=== PATIENT | female | born 1960 | race Caucasian/White ===

== ENCOUNTER 2019-04-01 14:39 | Emergency (ER) | payer OTHER ==
[~2019-04-01] VITALS: Ht 165.1 cm; Wt 72.6 kg
[~2019-04-01 14:39] MED LIST: BACTRIM DS TAB1 EAC1 PO; BENADRYL25 MG PO; ELIMITE60 GM TP; NORCO 5-325 TA1 EACH PO
[2019-04-01] MEDS ORDERED: NALTREXONE HCL50 MG PO (15:01)
[2019-04-01] MEDS ORDERED: TOPAMAX100 MG PO (15:01)
[2019-04-01] MEDS ORDERED: HYDROCHLOROTHIA25 M2 PO (15:01)
[2019-04-01 15:31] LABS: INFLUENZA A ANTIGEN Negative (Negative)
[2019-04-01] MEDS ORDERED: ONDANSETRON HCL4 M2 PO (15:58)
[2019-04-01] MEDS ORDERED: PREDNISONE 20 M20 MG PO (15:58)
[2019-04-01] MEDS ORDERED: TAMIFLU75 MG PO (15:58)
[2019-04-01] MEDS ORDERED: PREDNISONE 10 M10 MG PO (16:04)
[2019-04-01 16:11] VITALS: BP 130/91
== END 2019-04-01 16:12 | disposition home or self-care (01) ==
LOC: M.ERS 14:39
PROVIDERS: Nurse Practitioner Family
DX: J10.1 Influenza due to other identified influenza virus with other respiratory manifestations (principal); F17.200 Nicotine dependence, unspecified, uncomplicated; Z90.81 Acquired absence of spleen; Z85.41 Personal history of malignant neoplasm of cervix uteri; Z88.5 Allergy status to narcotic agent; Z88.2 Allergy status to sulfonamides; Z88.6 Allergy status to analgesic agent; Z88.8 Allergy status to other drugs, medicaments and biological substances

== ENCOUNTER 2019-05-03 16:45 | Inpatient (IN) | payer OTHER ==
[~2019-05-03] VITALS: Ht 165.1 cm; Wt 75.3 kg
--- NOTE | ~2019-05-03 | CON ---
[address] [address] CONSULTATION Name: CIRO BARRIGA Room: [address] IN .R.#: [id number] Admission: 05/03/19 Attend Phys: Zaida Pretty MD Discharge: Date of : 60 Report #: [id number] THIS REPORT FOR: //name// cc: TONY Soto family physician/PCP TONY Soto family physician/PCP ~ THIS REPORT FOR: //name// CC: Dr. Lawson [facility] physician/PCP Zaida Pretty DICTATED BY: Gaviota Martínez [facility] DATE OF SERVICE: 05/07/2019 Please note at the time of this dictation, the patient was seen and physically examined by myself. REASON FOR CONSULTATION: Ongoing lower abdominal pain. HISTORY OF PRESENT ILLNESS: This is a 59-year-old female who presented to the Emergency Room with ongoing abdominal pain for the past week. She states that had acute worsening over the last 2 days. She describes her pain as being over her suprapubic area and kind of radiating to the right lower quadrant. She states it is dull and intermittent. She has had a decreased appetite with a little bit of nausea, but no vomiting at this time. The patient states she does take some NSAIDs on a regular basis, naproxen for her general body aches and pains. She has never had an upper scope. She states she has had a colonoscopy done at [place] a couple of years ago and was told that she had colon polyps. She denies any issues with acid reflux or any difficulty swallowing or any upper abdominal pain. She does state her bowels are somewhat do not move on a regular basis and has some issues with some constipation. She had a very small bowel movement and that has been it since she has been here and likely she may have some constipation contributing to her lower abdominal discomfort. ALLERGIES: BACTRIM, TETRACYCLINE, CEPHALEXIN AND CODEINE. MEDICATIONS FROM HOME: Topamax, hydrochlorothiazide, Flexeril and naltrexone. PAST MEDICAL HISTORY: She has some essential tremors, history of cervical cancer, hypertension, fibromyalgia. PAST SURGICAL HISTORY: She has had a splenectomy and D and C. FAMILY HISTORY: Negative for any GI or female cancers. SOCIAL HISTORY: She continues to smoke. Denies any alcohol or illegal drug use at this time. REVIEW OF SYSTEMS: Twelve-point review of systems is essentially negative except what is mentioned in the HPI. PHYSICAL EXAMINATION: VITAL SIGNS: Temperature 36.6, pulse 90, respirations 16, blood pressure 125/71. HEART: Regular rate and rhythm. LUNGS: Clear. ABDOMEN: Soft, positive bowel sounds in all 4 quadrants with tenderness noted in the lower abdominal region. LABORATORY DATA: Hemoglobin of 13.3, white count 11.2, platelets 488. GFR 64. LFTs are normal. Did note that she had E. coli in her urine. CT was negative for any acute GI issues on admission. IMPRESSION: 1. Abdominal pain, lower, suprapubic. 2. Nausea, intermittent. 3. Constipation. 4. Nonsteroidal anti-inflammatory drug use. 5. Urinary tract infection. 6. History of colon polyps, colonoscopy done at [place]. 7. Personal history of cervical cancer. PLAN: 1. Dulcolax tablets 20 mg now to see if this will help alleviate some of her lower abdominal discomfort. 2. Medical records from [place] regarding her last colonoscopy. 3. Further recommendations to be made once the above have been reviewed and Dr. Vasquez sees the patient later today. Thank you for allowing us to participate in this patient's care. Please do not hesitate to call with any questions in regard to this consult. By: [id number] Amador Vasquez MD /nt
--- NOTE | ~2019-05-03 | EKG ---
[place] [address] ELECTROCARDIOGRAM REPORT Name: CIRO BARRIGA Room: [facility]#: [id number] Admission: 05/03/19 Attend Phys: Discharge: Date of : 60 Date of Service: 05/03/19 1840 Report #: [id number] THIS REPORT FOR: cc: FAM - No family physician/PCP FAM - No family physician/PCP Jared Coleman MD ~ THIS REPORT FOR: //name// [facility] ED Test Date: 2019-05-03 Test Time: 18:40:21 Pat Name: CIRO BARRIGA Department: Room: Gender: F Physics Department Chair: : 1960 Requested By: Francine Grant Order Number: [id number] MD: Measurements Intervals [place] Rate: 87 P: 48 MI: 164 QRS: 23 QRSD: 88 T: 52 QT: 383 QTc: 461 Interpretive Statements Sinus rhythm Low voltage, extremity leads Minimal ST depression, anterolateral leads Baseline wander in lead(s) II,III,aVF,V4 No previous ECG available for comparison [email or web address] By: 1840 1840 Epiphany Epiphany, /ELISA
[~2019-05-03 16:45] MED LIST changes: +HYDROCHLOROTHIA25 M2 PO; +NALTREXONE HCL50 MG PO; +ONDANSETRON HCL4 M2 PO; +PREDNISONE 10 M10 MG PO; +PREDNISONE 20 M20 MG PO; +TAMIFLU75 MG PO; +TOPAMAX100 MG PO
[2019-05-03 17:01] VITALS: BP 141/91
[2019-05-03] MEDS ORDERED: FLEXERIL PO (17:06)
[2019-05-03 18:32] LABS: URINE BILIRUBIN NEGATIVE (Negative); URINE BLOOD NEGATIVE (Negative); URINE CLARITY CLEAR; URINE COLOR YELLOW; URINE GLUCOSE-RANDOM NEGATIVE (Negative); URINE KETONES NEGATIVE (Negative); URINE LEUKOCYTES-REFLEX NEGATIVE (Negative); URINE PROTEIN NEGATIVE (Negative)
[2019-05-03 18:33] LABS: URINE NITRITE-REFLEX POSITIVE (Negative)
[2019-05-03 18:39] LABS: BACTERIA-REFLEX >30 Many /HPF (None Seen); SQUAMOUS >10 Many /LPF (0-3); URINE RBC None Seen /HPF (0-2); URINE WBC-REFLEX 0-5 Rare /HPF (0-5)
[2019-05-03 18:40] LABS: CASTS None Seen /LPF (None Seen); CRYSTALS None Seen /LPF (None Seen); MUCUS None Seen strn/LPF (None Seen)
[2019-05-03 18:42] LABS: ABSOLUTE EOSINOPHILS 0.3 thou/uL (0.0-0.7); ABSOLUTE LYMPHOCYTES 4.2 thou/uL (0.8-5.3); ABSOLUTE NEUTROPHILS 8.3 thou/uL (1.6-8.1); BASOPHILS 0.2 %; EOSINOPHILS 2.2 %; HEMATOCRIT 42.6 % (37.0-47.0); HEMOGLOBIN 14.4 gm/dL (12.0-15.0); LYMPHOCYTES 30.2 %; MCH 30.2 pg (26.0-34.0); MCHC 33.7 g/dL (28.0-37.0); MCV 89.6 fL (80.0-100.0); MONOCYTES 7.2 %; MPV 7.6 fl. (7.2-11.1); NUCLEATED RBCS 0 /100WBC; PLATELET COUNT* 453 thou/uL (150-400); POLYS 60.2 %; RBC 4.75 mil/uL (4.20-5.00); RDW-CV 14.3 % (10.5-14.5); WBC 13.9 thou/uL (4.0-11.0)
[2019-05-03 18:54] LABS: CALCIUM 8.7 mg/dL (8.5-10.1); CREATININE 0.8 mg/dL (0.6-1.3)
[2019-05-03 18:56] LABS: POTASSIUM 2.7 mmol/L (3.5-5.1)
[2019-05-03 18:58] LABS: ALBUMIN 3.5 g/dL (3.4-5.0); TOTAL BILIRUBIN 0.3 mg/dL (<0.1-1.0); TOTAL PROTEIN 7.3 g/dL (6.4-8.2)
[2019-05-03 22:50] VITALS: BP 135/85
[2019-05-03 23:00] VITALS: BP 126/82
[2019-05-04 01:54] LABS: HEMATOCRIT 37.5 % (37.0-47.0); HEMOGLOBIN 12.6 gm/dL (12.0-15.0); MCH 30.4 pg (26.0-34.0); MCHC 33.7 g/dL (28.0-37.0); MCV 90.3 fL (80.0-100.0); MPV 7.4 fl. (7.2-11.1); RBC 4.15 mil/uL (4.20-5.00); RDW-CV 14.9 % (10.5-14.5); WBC 11.6 thou/uL (4.0-11.0)
[2019-05-04 02:20] LABS: ALBUMIN 2.9 g/dL (3.4-5.0); CALCIUM 7.6 mg/dL (8.5-10.1); CREATININE 0.8 mg/dL (0.6-1.3); TOTAL BILIRUBIN 0.2 mg/dL (<0.1-1.0); TOTAL PROTEIN 5.9 g/dL (6.4-8.2)
[2019-05-04 02:21] LABS: POTASSIUM 3.9 mmol/L (3.5-5.1)
[2019-05-04 04:00] VITALS: BP 96/52
[2019-05-04 08:00] VITALS: BP 102/60
[2019-05-04 12:00] VITALS: BP 117/50
[2019-05-04 16:00] VITALS: BP 119/71
[2019-05-04 20:00] VITALS: BP 120/68
[2019-05-05 01:21] VITALS: BP 118/68
[2019-05-05 05:36] LABS: HEMATOCRIT 35.5 % (37.0-47.0); HEMOGLOBIN 12.3 gm/dL (12.0-15.0); MCH 31.4 pg (26.0-34.0); MCHC 34.7 g/dL (28.0-37.0); MCV 90.7 fL (80.0-100.0); MPV 7.2 fl. (7.2-11.1); RBC 3.92 mil/uL (4.20-5.00); RDW-CV 15.2 % (10.5-14.5); WBC 9.8 thou/uL (4.0-11.0)
[2019-05-05 05:37] LABS: CALCIUM 7.8 mg/dL (8.5-10.1); CREATININE 0.7 mg/dL (0.6-1.3); MAGNESIUM 1.8 mg/dL (1.8-2.4); POTASSIUM 3.9 mmol/L (3.5-5.1)
[2019-05-05 08:00] VITALS: BP 120/46
[2019-05-05 12:30] VITALS: BP 135/77
[2019-05-05 16:00] VITALS: BP 106/67
[2019-05-05 20:30] VITALS: BP 109/62
[2019-05-06 08:15] VITALS: BP 127/73
[2019-05-06 13:23] LABS: CALCIUM 8.3 mg/dL (8.5-10.1); CREATININE 0.9 mg/dL (0.6-1.3)
[2019-05-06 13:35] LABS: POTASSIUM 3.2 mmol/L (3.5-5.1)
[2019-05-06 15:53] VITALS: BP 111/67
[2019-05-06 20:17] VITALS: BP 156/86
[2019-05-07 08:05] VITALS: BP 112/71
[2019-05-07 15:04] LABS: HEMOGLOBIN 13.3 gm/dL (12.0-15.0); MCHC 34.2 g/dL (28.0-37.0); MCV 90.7 fL (80.0-100.0); MPV 7.9 fl. (7.2-11.1); RBC 4.3 mil/uL (4.20-5.00); RDW-CV 15.4 % (10.5-14.5); WBC 11.2 thou/uL (4.0-11.0)
[2019-05-07 15:12] LABS: CALCIUM 8.3 mg/dL (8.5-10.1); CREATININE 0.9 mg/dL (0.6-1.3); POTASSIUM 3.7 mmol/L (3.5-5.1)
[2019-05-07 16:00] VITALS: BP 117/69
[2019-05-07 19:41] VITALS: BP 128/82
[2019-05-08 07:55] VITALS: BP 125/71
[2019-05-08 14:09] VITALS: BP 125/71
[2019-05-08] MEDS ORDERED: NAPROXEN SODIU220 M2 PO (14:20)
[2019-05-08] MEDS ORDERED: NICOTINE TRANSD21 M1 TRANSDERM (14:20)
[2019-05-08] MEDS ORDERED: SENOKOT-S1 TA2 PO (14:21)
[2019-05-08] MEDS ORDERED: LEVAQUIN 500 M500 M3 PO (14:27)
[2019-05-08 16:00] VITALS: BP 111/58
== END 2019-05-08 18:17 | disposition home or self-care (01) | DRG 871 ==
LOC: M.ERS 16:45 → M.TBA-ER 20:44 → M.2W 20:44 → M.ORTHSURG 05-05 16:17
PROVIDERS: Family Medicine; Nurse Practitioner Family; ADMIT Internal Medicine
DX: A41.9 Sepsis, unspecified organism (principal); E43 Unspecified severe protein-calorie malnutrition; N30.00 Acute cystitis without hematuria; E87.0 Hyperosmolality and hypernatremia; I10 Essential (primary) hypertension; E87.6 Hypokalemia; K59.00 Constipation, unspecified; F17.210 Nicotine dependence, cigarettes, uncomplicated; M79.7 Fibromyalgia; B96.89 Other specified bacterial agents as the cause of diseases classified elsewhere; E87.8 Other disorders of electrolyte and fluid balance, not elsewhere classified; Z23 Encounter for immunization; Z85.41 Personal history of malignant neoplasm of cervix uteri; Z90.81 Acquired absence of spleen; Z88.6 Allergy status to analgesic agent; Z88.1 Allergy status to other antibiotic agents; Z88.2 Allergy status to sulfonamides; Z88.8 Allergy status to other drugs, medicaments and biological substances; Z79.1 Long term (current) use of non-steroidal anti-inflammatories (NSAID); Z86.010 Personal history of colon polyps

== ENCOUNTER 2020-11-13 15:19 | Inpatient (IN) | payer OTHER, MEDICAID ==
[~2020-11-13] VITALS: Ht 165.1 cm; Wt 63.0 kg
[~2020-11-13 15:19] MED LIST changes: +FLEXERIL PO; +LEVAQUIN 500 M500 M3 PO; +NAPROXEN SODIU220 M2 PO; +NICOTINE TRANSD21 M1 TRANSDERM; +SENOKOT-S1 TA2 PO
[2020-11-13 15:51] VITALS: BP 155/83
[2020-11-13] MEDS ORDERED: BUPROPION XL300 MG PO (15:56)
[2020-11-13] MEDS ORDERED: [UNRECOGNIZED DRUG - OTHER] (15:56)
[2020-11-13] MEDS ORDERED: VENTOLIN HFA INH8 GM INH (15:57)
[2020-11-13 16:01] LABS: ABSOLUTE BASOPHILS 0.2 thou/uL (0.0-0.2); ABSOLUTE EOSINOPHILS 0.2 thou/uL (0.0-0.7); ABSOLUTE LYMPHOCYTES 5.6 thou/uL (0.8-5.3); ABSOLUTE MONOCYTES 0.8 thou/uL (0.0-1.2); ABSOLUTE NEUTROPHILS 3.8 thou/uL (1.6-8.1); BASOPHILS 1.7 %; EOSINOPHILS 2.3 %; HEMATOCRIT 43.7 % (37.0-47.0); HEMOGLOBIN 15.1 gm/dL (12.0-15.0); LYMPHOCYTES 52.6 %; MCH 31.5 pg (26.0-34.0); MCHC 34.5 g/dL (28.0-37.0); MCV 91.4 fL (80.0-100.0); MONOCYTES 7.8 %; MPV 7.7 fl. (7.2-11.1); NUCLEATED RBCS 0 /100WBC; PLATELET COUNT* 446 thou/uL (150-400); POLYS 35.6 %; RBC 4.78 mil/uL (4.20-5.00); RDW-CV 13.3 % (10.5-14.5); WBC 10.6 thou/uL (4.0-11.0)
[2020-11-13 16:25] LABS: CALCIUM 8.9 mg/dL (8.5-10.1); CREATININE 0.6 mg/dL (0.6-1.3); POTASSIUM 4.3 mmol/L (3.5-5.1)
[2020-11-13 16:30] LABS: ALBUMIN 3.8 g/dL (3.4-5.0); TOTAL BILIRUBIN 0.4 mg/dL (<0.1-1.0); TOTAL PROTEIN 7.4 g/dL (6.4-8.2)
--- NOTE | 2020-11-13 17:47 | EKG ---
[place] [address] ELECTROCARDIOGRAM REPORT Name: CIRO BARRIGA Room: [facility]#: [id number] Admission: 11/13/20 Attend Phys: Discharge: Date of : 60 Date of Service: 11/13/20 1524 Report #: [id number] THIS REPORT FOR: //name// [facility] ED Test Date: 2020-11-13 Test Time: 15:24:09 Pat Name: CIRO BARRIGA Department: Room: Gender: Head Of Design: : 1960 Requested By: Sukhdev Jarvis Order Number: [id number] MD: Alexandre Blanco Measurements Intervals [place] Rate: 97 P: 62 NV: 169 QRS: -36 QRSD: 106 T: 37 QT: 341 QTc: 433 Interpretive Statements Sinus rhythm Left axis deviation Low voltage, extremity leads Anteroseptal infarct, old Baseline wander in lead(s) I,III,aVL Compared to ECG 05/03/2019 18:40:21 Left-axis deviation now present Myocardial infarct finding now present Electronically Signed On 11-13-2020 17:46:58 CDT by Alexandre Blanco [email or web address] <ELECTRONICALLY SIGNED> By: Alexandre Blanco MD, [facility] 11/13/20 1746 1524 1524 Alexandre Blanco MD, [facility] /EPI
[2020-11-13 22:14] VITALS: BP 129/73
[2020-11-13 23:18] VITALS: BP 129/73
[2020-11-13] MEDS ORDERED: HYDROCHLOROTHIA25 M1 PO (23:21)
[2020-11-13] MEDS ORDERED: MELATONIN10 M3 PO (23:22)
[2020-11-13] MEDS ORDERED: PAXIL20 MG PO (23:51)
[2020-11-14] VITALS (7 sets, daily range): BP systolic 109–136; BP diastolic 66–79
--- NOTE | 2020-11-14 04:18 | NUR ---
RECIEVED REPORT FROM ED RN. PT TRANSFERRED TO 227. PT A&OX4. VSS. 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 ADMISSION HISTORY & PHYSICAL ASSESSMNET COMPLETED AND CHARTED. PT TRACING SR ON TELE. PT UPADLIB TO RESTROOM. PT COMPLAINED OF EPIGASTRIC PAIN-MED GIVEN PER JUN. ORIENTED TO ROOM & CALL LIGHT. CALL LIGHT WITHIN REACH.
[2020-11-15 04:00] VITALS: BP 131/72
--- NOTE | 2020-11-15 05:33 | NUR ---
PT A&O X 4. VSS ON RA. FENTANYL GIVEN X 1 FOR PAIN. UP INDEPENDENTLY IN ROOM. NO OTHER CONCERNS AT THIS TIMES. CALL LIGHT WITHIN REACH. WILL CONTINUE TO MONITOR.
[2020-11-15 09:00] VITALS: BP 139/75
[2020-11-15 09:11] LABS: ABSOLUTE BASOPHILS 0.1 thou/uL (0.0-0.2); ABSOLUTE EOSINOPHILS 0.4 thou/uL (0.0-0.7); ABSOLUTE LYMPHOCYTES 3.8 thou/uL (0.8-5.3); ABSOLUTE MONOCYTES 0.7 thou/uL (0.0-1.2); ABSOLUTE NEUTROPHILS 3.7 thou/uL (1.6-8.1); BASOPHILS 1.4 %; EOSINOPHILS 4.4 %; HEMATOCRIT 42.6 % (37.0-47.0); HEMOGLOBIN 14.5 gm/dL (12.0-15.0); LYMPHOCYTES 43.4 %; MCH 31.6 pg (26.0-34.0); MCHC 34.1 g/dL (28.0-37.0); MCV 92.5 fL (80.0-100.0); MONOCYTES 8.2 %; MPV 6.9 fl. (7.2-11.1); NUCLEATED RBCS 0 /100WBC; PLATELET COUNT* 409 thou/uL (150-400); POLYS 42.6 %; RDW-CV 13.4 % (10.5-14.5); WBC 8.8 thou/uL (4.0-11.0)
[2020-11-15 09:17] LABS: CALCIUM 8.6 mg/dL (8.5-10.1); CREATININE 0.8 mg/dL (0.6-1.3); POTASSIUM 3.9 mmol/L (3.5-5.1)
[2020-11-15 09:20] LABS: PHOSPHORUS* 3.9 mg/dL (2.5-4.9)
[2020-11-15 12:05] VITALS: BP 122/83
[2020-11-15 16:47] VITALS: BP 130/84
[2020-11-15 20:51] VITALS: BP 138/87
[2020-11-16 00:19] VITALS: BP 133/72
[2020-11-16 04:03] VITALS: BP 120/64
[2020-11-16 09:00] VITALS: BP 131/83
[2020-11-16 12:49] VITALS: BP 142/86
--- NOTE | 2020-11-16 15:23 | NUR ---
CM ASSESSEMENT: PT A&O, INDPENDENT WITH ADL'S, AND ACTIVE. PT RESIDES AT HOME WITH FIANCE'. PT USES A CANE FOR MOBILITY. PT HAS 0 HX OF HH OR SNF. PT INFORMS THAT SHE HAS BEEN WEAK LATELY AND THINKS THAT SHE NEEDS A WALKER. P.T. TO SEE PT TO ASSESS HER MOBILITY. CM WILL REMAIN AVAILABLE TO ASSIST AND FOLLOW NEEDED.
[2020-11-16 16:27] VITALS: BP 149/93
[2020-11-16 20:00] VITALS: BP 138/90
[2020-11-17] VITALS: BP 149/88
--- NOTE | 2020-11-17 02:27 | NUR ---
PT ALERT ORIENTED. UP AD BARBRA AND AMBULATES IN HALLS. DENIES PAIN. 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
[2020-11-17 04:00] VITALS: BP 115/67
--- NOTE | 2020-11-17 07:10 | NUR ---
CHANGE OF SHIFT REPORT GIVEN PATIENT SEEN AT BEDSIDE, IN BED ASLEEP ASSUMED PATIENT CARE
[2020-11-17 08:00] VITALS: BP 134/78
[2020-11-17] MEDS ORDERED: FLAGYL500 M1 PO (10:25)
[2020-11-17] MEDS ORDERED: MIRALAX17 GM PO (10:25)
[2020-11-17] MEDS ORDERED: SENNA PLUS TAB1 EACH PO (10:25)
[2020-11-17] MEDS ORDERED: CIPRO500 M1 PO (10:25)
--- NOTE | 2020-11-17 11:11 | CON ---
[address] [address] CONSULTATION Name: CIRO BARRIGA Room: [address] IN M.R.#: [id number] Admission: 11/15/20 Attend Phys: Zaida Pretty MD Discharge: Date of : 60 Report #: [id number] THIS REPORT FOR: cc: Mariposa Mcguire Maggie M. DO Blick, David R. MD [facility] ~ DATE OF CONSULTATION: 11/16/2020 HISTORY OF PRESENT ILLNESS: The patient is a 60-year-old single white female who I was asked to see in the hospital today after she complained of epigastric discomfort. The patient notes that she used to be cared for at [facility]. She has a long history of palpitations, apparently wore a 24-hour Holter monitor at [place] in the past and was not placed on any medications. She smokes half pack of cigarettes a day, does have a chronic cough. She uses an inhaler. She is not very active because of fibromyalgia. She has had a long history of epigastric discomfort. The pain can be related to food. It does make her nauseated. There is no radiation of the pain. Pain is not related to exertion. She has had no blood in her stool. She denies any recent syncope. Because of the epigastric pain, she finally came to the hospital 3 days ago, admitted for further evaluation and treatment. She does get short of breath if she exerts herself and has a chronic cough. She has had no recent fever. 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 She has a history of hypertension, COPD. She has had colon polyps removed in the past. She has a history of depression, saw a psychiatrist. CURRENT MEDICATIONS: Include HCTZ, bupropion, Paxil, Advair inhaler. FAMILY HISTORY: Her mother of an aneurysm. SOCIAL HISTORY: She is engaged to be . She lives in [place]. Smokes half pack of cigarettes a day. She used to abuse cocaine, no longer abuses illicit drugs. REVIEW OF SYSTEMS: She has had no history of stroke. She has COPD. No liver disease. No kidney disease. She had cancer of the uterus and had cryoablation in the past. No chronic skin condition. Does have a history of depression, seen a psychiatrist. PHYSICAL EXAMINATION: GENERAL: Revealed a middle-aged female, appeared in no distress, lying in bed. VITAL SIGNS: She had a blood pressure of 120/60, pulse is 80, she is afebrile. HEENT: She was anicteric. Conjunctivae pink. Mucous membranes are moist. NECK: Veins not distended. No carotid bruits. CHEST: [place] [address] CONSULTATION Name: CIRO BARRIGA Room: [address] IN [facility]#: [id number] Admission: 11/15/20 Attend Phys: Zaida Pretty MD Discharge: Date of : 60 Report #: [id number] HEART: Regular rate and rhythm without murmur. ABDOMEN: Soft. EXTREMITIES: Had no edema. Dorsalis pedis pulse 2+ bilaterally. SKIN: Cool and dry. NEUROLOGIC: Nonfocal. LABORATORY DATA: Her ECG on admission showed a sinus rhythm with nonspecific ST segment changes. Her workup since admission, she had a portable chest x-ray that showed no acute abnormality. She actually had a CT scan of the abdomen with contrast on admission because of her epigastric pain that showed mild colitis. Her lab work, sodium 143, creatinine 0.8. Liver function studies were normal. Troponins all less than 0.06. TSH 4.4. White blood cell count 8.8, hemoglobin 14.5. Her COVID antigen stat test was negative. IMPRESSION AND RECOMMENDATIONS: 1. Epigastric pain. No symptoms of angina. Recommend no further cardiac evaluation. 2. Hypertension. Blood pressure appears controlled on HCTZ. 3. History of palpitations. Previous negative Holter monitor. 4. Previous removal of a colon polyp. 5. Previous splenectomy for benign disease. 6. Tobacco abuse. 7. History of illicit drug use. 8. History of depression. <ELECTRONICALLY SIGNED> By: Alexandre Blanco MD, [facility] 11/17/20 1111 0811 [id number] Blanco MD, FAC /nt
[2020-11-17 11:52] LABS: CALCIUM 8.5 mg/dL (8.5-10.1); CREATININE 0.8 mg/dL (0.6-1.3); MAGNESIUM 2.3 mg/dL (1.8-2.4); POTASSIUM 3.7 mmol/L (3.5-5.1)
[2020-11-17 12:02] VITALS: BP 134/78
[2020-11-17 12:08] VITALS: BP 150/91
--- NOTE | 2020-11-17 12:15 | NUR ---
DISCHARGE TO HOME DC INSTRUCTIONS GIVEN AND COPIES GIVEN IV AND HEART MONITOR REMOVED PERSONAL BELONGIGNS RETURNED PATIENT ASSISTED OUT VIA WC GOOD CONDITION TO HOME
== END 2020-11-17 12:15 | disposition home or self-care (01) | DRG 372 ==
LOC: M.ERS 15:19 → M.TBA-ER 18:14 → M.2W 23:35
PROVIDERS: Emergency Medicine Emergency Medical Services; Internal Medicine; ADMIT Internal Medicine; ATTEND Internal Medicine
DX: A04.9 Bacterial intestinal infection, unspecified (principal); J44.1 Chronic obstructive pulmonary disease with (acute) exacerbation; M79.7 Fibromyalgia; I10 Essential (primary) hypertension; F17.210 Nicotine dependence, cigarettes, uncomplicated; K59.00 Constipation, unspecified; R25.1 Tremor, unspecified; F32.9 Major depressive disorder, single episode, unspecified; Z20.822 Contact with and (suspected) exposure to COVID-19; Z90.81 Acquired absence of spleen; Z85.41 Personal history of malignant neoplasm of cervix uteri; Z79.899 Other long term (current) drug therapy; Z88.5 Allergy status to narcotic agent; Z88.2 Allergy status to sulfonamides; Z88.1 Allergy status to other antibiotic agents